=== PATIENT | female | born 1950 | race Caucasian/White ===

== ENCOUNTER → 2018-05-01 12:06 | Outpatient (CLI) | payer MEDICARE, OTHER, SELFPAY | PROVIDERS: Family Provider Family Medicine; PCP Family Medicine | DX: M81.0 Age-related osteoporosis without current pathological fracture (principal); Z78.0 Asymptomatic menopausal state; Z85.3 Personal history of malignant neoplasm of breast | CPT/HCPCS: 77080 ==

== ENCOUNTER → 2019-08-13 09:47 | Outpatient (CLI) | payer MEDICARE, OTHER, SELFPAY | PROVIDERS: PCP Family Medicine; Referring Provider Internal Medicine Endocrinology, Diabetes & Metabolism; Visit Provider Family Medicine | DX: M81.0 Age-related osteoporosis without current pathological fracture (principal); Z78.0 Asymptomatic menopausal state; Z85.3 Personal history of malignant neoplasm of breast | CPT/HCPCS: 77080 ==

== ENCOUNTER → 2022-06-08 10:12 | Outpatient (CLI) | payer MEDICARE, OTHER, SELFPAY ==
[2022-06-08 19:41] LABS: Hematocrit 41.7 % (36-46); Hemoglobin 14.1 g/dL (12.0-16.0); Mean Corpuscular HGB Conc 33.7 % (30-36); Mean Corpuscular Hemoglobin 31.8 PG (26-34); Mean Corpuscular Volume 94.4 fL (80-100); Platelet Count 248 X10^3/uL (150-400); Red Blood Cell Count 4.42 X10^6/uL (4.0-5.2); Red Cell Distribution Width 13.7 % (11.6-14.8); White Blood Cell Count 4.8 X10^3/uL (4.5-11.0)
[2022-06-08 19:50] LABS: Alanine Aminotransferase 16 IU/L (<35); Albumin 4.2 g/dL (3.5-5.0); Albumin Globulin Ratio 1.1 (1.0-2.8); Alkaline Phosphatase 58 U/L (38-126); Aspartate Aminotransferase 37 IU/L (14-36); BUN Creatinine Ratio 23.2 (6-22); Bilirubin Total 0.8 mg/dL (0.2-1.3); Blood Urea Nitrogen 19 mg/dL (7-17); Calcium 9.3 mg/dL (8.4-10.2); Carbon Dioxide 29 mmol/L (22-32); Chloride 101 mmol/L (98-107); Cholesterol 259 mg/dL (140-199); Estimated Glomerular Filt Rate > 60 mL/min (>60); Globulin 3.7 g/dL (1.7-4.1); Glucose 87 mg/dL (80-110); HDL Cholesterol 79 mg/dL (40-60); HEMOLYSIS < 15 (0-50); LDL Cholesterol Calculated 168 mg/dL (<100); Potassium 4.2 mmol/L (3.4-5.1); Total Protein 7.9 g/dL (6.3-8.2); Triglycerides 59 mg/dL (35-150)
[2022-06-08 19:53] LABS: Sodium 136 mmol/L (137-145)
[2022-06-08 20:15] LABS: TSH w/ Reflex to FT4 3.36 uIU/mL (0.47-4.68)
[2022-06-08 20:45] LABS: Neutrophils Absolute Manual 2928 /uL (3000-5900); RBC Morphology Normal Morphology; Total Cells Counted 100
== END ==
PROVIDERS: PCP Family Medicine; Visit Provider Family Medicine
DX: Z00.00 Encounter for general adult medical examination without abnormal findings (principal); E04.1 Nontoxic single thyroid nodule; E78.5 Hyperlipidemia, unspecified
CPT/HCPCS: 80053; 80061; 84443; 85025

== ENCOUNTER → 2022-07-06 11:18 | Outpatient (CLI) | payer MEDICARE, OTHER, SELFPAY | PROVIDERS: PCP Family Medicine; Referring Provider Family Medicine; Visit Provider Family Medicine | DX: Z00.00 Encounter for general adult medical examination without abnormal findings (principal); M81.0 Age-related osteoporosis without current pathological fracture; Z85.3 Personal history of malignant neoplasm of breast; Z86.39 Personal history of other endocrine, nutritional and metabolic disease; E78.2 Mixed hyperlipidemia; Z87.39 Personal history of other diseases of the musculoskeletal system and connective tissue; M85.89 Other specified disorders of bone density and structure, multiple sites | CPT/HCPCS: 77080 ==

== ENCOUNTER 2023-02-25 09:47 | Day surgery (SDC) | payer MEDICARE, SELFPAY ==
[2023-02-25] MEDS: LACTATED RINGERS 1,000 ML 42 ML IV (10:10)
[2023-02-25 10:14] VITALS: BP 120/73; PULSE 68; RESP 16; TEMP 36.2; O2SAT 99
--- NOTE | 2023-02-25 11:15 | PM.HP.1 ---
History of Present Illness History of Present Illness Date Patient Seen: 02/25/23 Time Patient Seen: 11:15 Chief complaint: SDC, history of polyps Narrative: Ms. Jarvis presents today for screening colonoscopy. She has had colonoscopy she states it was ?some years ago.? She can not remember exactly how many and believes it was done somewhere near [place]. She does remember that she had polyps at that time. She can not remember how many years of follow-up were recommended. I do not have her records available at this time. She denies any family history of colon cancer or any concerning symptoms: no blood no diarrhea no constipation or abdominal pain. [facility] Medical History (Updated 02/25/23 @ 11:17 by Katy Correa MD) Fatigue History of breast cancer History of radioactive iodine thyroid ablation Preventative health care Screening for diabetes mellitus Family History Other Family history of heart disease Social History household members: spouse Smoking Status: Never smoker alcohol intake: current Meds Home Medications and Allergies Home Medications Medication Instructions Recorded Confirmed Type atorvastatin 10 mg tablet See Rx Instructions .Route 12/02/22 02/25/23 Rx .COMPLEX #30 tabs calcium carbonate 600 mg calcium mg PO 12/23/22 12/23/22 History (1,500 mg) tablet sodium,potassium,mag sulfates 17.5 See Rx Instructions PO .COMPLEX 02/01/23 Rx gram-3.13 gram-1.6 gram oral soln #354 mL (Suprep Bowel Prep Kit) Allergies Allergy/AdvReac Type Severity Reaction Status Date / Time oxycodone AdvReac Fainting Verified 02/25/23 10:11 Exam Vital Signs (past 8 hours): - 02/25/23 10:14 Temperature 97.2 F L Pulse Rate 68 Respiratory Rate 16 Blood Pressure 120/73 Pulse Oximetry 99 Oxygen Delivery Method Room Air Oxygen Delivery Method Room Air Const General: cooperative, healthy appearing and comfortable Nutritional Appearance: average body habitus and thin HENMT Head: normal to inspection Resp Effort & Inspection: normal respiratory effort and able to speak in complete sentences GI Palpation: soft and No tender Assessment & Plan Assessment and plan (1) Cancer screening: Status: Acute (2) History of colon polyps: Status: Acute Assessment & Plan narrative: Presents today for screening colonoscopy I discussed the risks benefits and alternatives including but not limited to perforation of the colon and an incomplete exam she fully understands these risks and would like to proceed.
--- NOTE | 2023-02-25 12:28 | P.OP.COLON_ITS ---
Operative Date/Time/Diagnoses Date of procedure: 02/25/23 Time of procedure: 12:28 Procedure & Clinicians Study performed: Colonoscopy Indications: Screening history of polyps Surgeon: Katy Correa Procedure Notes Procedure in detail: Patient was taken to the endoscopy suite and placed in a left lateral decubitus position. With the assistance of anesthesia provider conscious sedation was induced and maintained throughout the case. A time-out was performed. A digital rectal exam performed there were no masses or strictures. The colonoscope was introduced into the anal canal and advanced through to the cecum. Some abdominal pressure was required but much and prep was excellent Lindrith bowel prep score of 3. Photograph of the appendiceal orifice was obtained. The colonoscope was then withdrawn slowly for the course of 11 minutes. There were scattered diverticula throughout the sigmoid colon. Idania tographs were taken. The scope was then retroflexed in the rectum and there were prominent hemorrhoidal piles. Photograph was obtained. The scope was then withdrawn the patient tolerated the procedure well and went in good condition to postoperative care unit. Findings: divertiulosis and internal hemorrhoids Specimen(s): none sent Complications: none Post-procedure Recommendations: Colonoscopy in 10 years and High fiber diet
[2023-02-25 12:33] VITALS: BP 121/66; PULSE 69; RESP 18; TEMP 36.3; O2SAT 97
[2023-02-25 12:38] VITALS: BP 124/68; PULSE 58; RESP 17; O2SAT 98
[2023-02-25 12:43] VITALS: BP 125/79; PULSE 68; RESP 20; O2SAT 99
[2023-02-25 12:52] VITALS: BP 134/72; PULSE 55; RESP 16; TEMP 36.3; O2SAT 99
--- NOTE | 2023-02-25 13:09 | SUR.PHASEII ---
all belongings with patient. not answering cell phone. been called and a text message was sent.
== END 2023-02-25 13:22 | disposition home or self-care (01) ==
PROVIDERS: PCP Family Medicine; Referring Provider Surgery; Visit Provider Surgery
PROC: 0DJD8ZZ Inspection of Lower Intestinal Tract, Via Natural or Artificial Opening Endoscopic (ICD-10-PCS; CPT 45378; principal; 2023-02-25 11:15)
DX: Z12.11 Encounter for screening for malignant neoplasm of colon (principal); Z86.010 Personal history of colon polyps; K57.30 Diverticulosis of large intestine without perforation or abscess without bleeding; K64.8 Other hemorrhoids
CPT/HCPCS: 45378; J2704

== ENCOUNTER → 2024-01-09 09:50 | Outpatient (CLI) | payer MEDICARE, SELFPAY ==
[2024-01-09 19:52] LABS: Alanine Aminotransferase 22 IU/L (<35); Albumin 3.9 g/dL (3.5-5.0); Albumin Globulin Ratio 1.2 (1.0-2.8); Alkaline Phosphatase 64 U/L (38-126); Aspartate Aminotransferase 32 IU/L (14-36); BUN Creatinine Ratio 30.8 (6-22); Bilirubin Total 0.9 mg/dL (0.2-1.3); Blood Urea Nitrogen 24 mg/dL (7-17); Calcium 9.5 mg/dL (8.4-10.2); Carbon Dioxide 31 mmol/L (22-32); Chloride 103 mmol/L (98-107); Cholesterol 185 mg/dL (140-199); Estimated Glomerular Filt Rate > 60 mL/min (>60); Globulin 3.3 g/dL (1.7-4.1); Glucose 94 mg/dL (80-110); HDL Cholesterol 91 mg/dL (40-60); HEMOLYSIS 16 (0-50); LDL Cholesterol Calculated 83 mg/dL (<100); Potassium 4.1 mmol/L (3.4-5.1); Sodium 138 mmol/L (137-145); Total Protein 7.2 g/dL (6.3-8.2); Triglycerides 56 mg/dL (35-150)
== END ==
PROVIDERS: PCP Family Medicine; Visit Provider Family Medicine
DX: E78.2 Mixed hyperlipidemia (principal)
CPT/HCPCS: 80053; 80061

== ENCOUNTER → 2024-07-12 11:42 | Outpatient (CLI) | payer MEDICARE, SELFPAY ==
--- NOTE | 2024-07-12 11:43 | DI.RAD.S_ITS ---
PROCEDURE: XR DEXA AXIAL SKELETON INDICATIONS: osteoporosis: screen same forearm as 2021. COMPARISON: [facility], , XR DEXA AXIAL SKELETON, 07/06/2022, 11:38. FINDINGS: Lumbar Spine: Bone mineral density 0.845 g/cm2, T score -1.8, dissimilar scan type from prior DEXA therefore comparison cannot be made. Left Hip: Bone mineral density 0.626 g/cm2, T score -2.6, no statistically significant difference compared to prior DEXA dated July 06, 2022. Left Femoral Neck: Bone mineral density 0.577 g/cm2, T score -2.4. Left Forearm: Bone mineral density 0.563 g/cm2, T score -2.2, no statistically significant difference compared to prior DEXA dated July 06, 2022. Fracture Risk Calculation (when applicable): 10-year fracture risk of a major osteoporotic fracture without prior fracture is 13 percent and of a hip fracture is 4.3 percent. (T score greater or equal to -1.0 to: NORMAL) (T score from -1.1 to -2.4: OSTEOPENIA) (T score less than or equal to -2.5: OSTEOPOROSIS) IMPRESSION: 1. By WHO criteria, this patient has osteoporosis. No statistically significant difference in bone mineral density compared to prior DXA dated July 06, 2022, where applicable. 2. The 10-year fracture risk of a major osteoporotic fracture without prior fracture is 13 percent and of a hip fracture is 4.3 percent. Follow-up guidelines as follows: Osteoporosis: Consider a repeat DEXA and Vertebral Fracture Assessment (VFA) exam in 2 years or sooner if medically necessary, to reassess this patient's status. Osteopenia: Consider a repeat DEXA in 2-3 years to reassess this patient's status, or if there is a new clinical indication. Normal: Consider a repeat DEXA in 5 years or sooner, or if there is a new clinical indication. All treatment decisions require clinical judgment and consideration of individual patient factors, including patient preferences, comorbidities, previous drug use, risk factors not captured in the FRAX model (e.g., frailty, falls, vitamin D deficiency, increased bone turnover, interval significant decline in bone density ) and possible under- or over-estimation of fracture risk by FRAX. In addition, the NOF Guide recommends that FDA-approved medical therapies be considered in postmenopausal women and men age >= 50 years with a: * Hip or vertebral (clinical or morphometric) fracture * T-score of <=-2.5 at the spine or hip * Ten-year fracture probability by FRAX of >= 3% for hip fracture or >=20% for major osteoporotic fracture. People with diagnosed cases of osteoporosis or at high risk for fracture should have regular bone mineral density tests. For patients eligible for Medicare, routine testing is allowed once every 2 years. The testing frequency can be increased to one year for patients who have rapidly progressing disease, those who are receiving or discontinuing medical therapy to restore bone mass, or have additional risk factors. Dictated by: Leatha Cassidy M.D. on 07/13/2024 at 12:35 Approved by: Leatha Cassidy M.D. on 07/13/2024 at 13:07
== END ==
PROVIDERS: PCP Family Medicine; Referring Provider Family Medicine; Visit Provider Family Medicine
DX: M81.0 Age-related osteoporosis without current pathological fracture (principal)
CPT/HCPCS: 77080; 77081